=== PATIENT | male | born 1950 | race Caucasian/White ===

== ENCOUNTER → 2018-06-11 11:57 | Outpatient (CLI) | payer OTHER, MEDICARE, SELFPAY | PROVIDERS: PCP Physician Assistant Medical; Visit Provider Orthopaedic Surgery | DX: Z01.818 Encounter for other preprocedural examination (principal); Z01.812 Encounter for preprocedural laboratory examination; N39.0 Urinary tract infection, site not specified | CPT/HCPCS: 93005 ==

== ENCOUNTER 2018-07-03 08:22 | Inpatient (IN) | payer OTHER, MEDICARE, SELFPAY ==
[2018-06-20 09:23] VITALS: BMI 37.3
[2018-07-03] VITALS (15 sets, daily range): BP systolic 121–160; BP diastolic 55–92; PULSE 50–70; RESP 11–20; TEMP 32.2–36.4; O2SAT 91–97; BMI 37.3
--- NOTE | 2018-07-03 06:00 | DI.RAD.S_ITS ---
PROCEDURE: XR KNEE LT 1TO2V INDICATIONS: post operative total knee TECHNIQUE: 2 view(s) of the knee acquired. COMPARISON: [facility], , KNEE 1-2 VIEWS RIGHT, 11/21/2017, 13:08. FINDINGS: Bones: Patient is status post knee joint arthroplasty. Hardware components are in expected positions. Visualized bony structures are intact. Soft tissues: Overlying postoperative changes are noted. IMPRESSION: Postop changes from left total knee arthroplasty with anatomic left knee alignment. Dictated by: Aaron Solorio M.D. on 07/03/2018 at 14:13 Approved by: Aaron Solorio M.D. on 07/03/2018 at 14:14
[2018-07-03] MEDS: CELECOXIB 200 MG CAPSULE PO (09:01)
[2018-07-03] MEDS: ACETAMINOPHEN 325 MG TABLET 975 MG PO ×2 (09:01→20:38)
[2018-07-03] MEDS: PREGABALIN 75 MG CAPSULE PO (09:01)
[2018-07-03] MEDS: LACTATED RINGERS 1,000 ML 42 ML IV ×2 (09:03→12:12)
[2018-07-03] MEDS: VANCOMYCIN 1,000 MG/200 ML FROZ.PIGGY 200 MG IV (09:33)
--- NOTE | 2018-07-03 10:11 | PM.PREOP ---
Pre-operative Note Interval Note Pre-op Check: Yes History & Physical Reviewed by Physician and Yes Exam Performed Changes: No
--- NOTE | 2018-07-03 10:11 | PM.OP.1 ---
Operative Date/Time/Diagnoses Date of procedure: 07/03/18 Time of procedure: 11:12 Pre-op diagnosis: left knee OA Post-op diagnosis: same Procedure & Clinicians Procedure: left total knee arthroplasty Same procedure as scheduled: Yes Indications: The patient has had progressively worsening left knee pain with radiographic changes consistent with arthritis. Non-operative management has failed and the patient has requested total knee replacement. The risks, benefits and alternatives to surgery were discussed with the patient prior to proceeding. Risks discussed included, but were not limited to, failure to relieve pain, stiffness, infection, nerve damage, deep venous thrombosis, pulmonary embolism, stroke, coma, heart attack, permanent paralysis and , as well as the potential need for eventual revision of the prosthetic. Surgeon: Meenu Pat Senior Analysis Specialist: Sherron Patel Anesthesia Type: General and Spinal Operative Notes Findings: Severe left knee osteoarthritis, good stability Closure Type: primary Specimen(s): none sent Implants & Drains: [employer]hew Wallace BCS2 size 7 femur, size 7 tibia, +9 poly, size 38 patella Applied: drain(s) Estimated Blood Loss (mL): 300 Blood products transfused: none Tourniquet time (min): 89 Procedure in detail: The patient was seen in the pre-operative area, where the patient identified the right knee as the operative site and this was marked with my initials. The patient received pre-operative antibiotics, and was taken to the operating room and placed on the operative table in the supine position. After satisfactory anesthesia, a part time flexible clerk out was performed. The right leg was encircled with a tourniquet about the proximal thigh, and the leg was prepared from the toes to the tourniquet with ChloroPrep in the usual fashion and draped through sterile drapes. The leg was elevated and exsanguinated with Eschmark bandage and the tourniquet inflated to [250] mmHg pressure. The knee was approached through an approximately 18 cm incision centered over the patella and carried into the knee through a medial parapatellar arthrotomy. A portion of the medial and lateral meniscus was resected. Soft tissue was carefully mobilized around the patella the patella was measured with a caliper. Bone was resected from the patella and the patellar height was reconstituted with up an appropriate sized patellar component. A cover was then placed on the patella. A small amount of additional medial and lateral meniscus was resected. The visionare guide fit well to the distal femur. It looked like an appropriate distal femoral cut and the cut was made without difficulty. The rotation was assessed and the appropriate size femoral guide was placed on the distal femur and finishing cuts were made. There was no evidence of notching. The anterior, posterior and chamfer cuts were then made. The posterior osteophytes and soft tissues were then removed. The posterior capsule was injected with part of a mixture of 60 ml 0.25% Marcaine mixed with 20 ml Exparel for post operative pain control. The remainder of this mixture was injected into the capsule and subcutaneous tissues during cement curing. The tibia was prepared and the visionaire guide fit well to the distal tibia. The rotation was assessed. The patient was placed in extension residual medial and lateral meniscus as well as any residual bone was carefully resected. [No] additional tibia was resected. Hemostasis was achieved especially posteriorly. Additional local was injected into the posterior capsule. The extension gap was assessed and additional releases for gap balancing were performed as necessary. It was checked with the gap national sales executive. The femoral component was trial was placed and the notch was finished. Trial tibial and femoral components were then placed and the knee placed through a range of motion. Range of motion was [0-130], with good stability throughout the range. The trials were then removed, and the tibia was finished. The bone was prepared with pulsatile lavage, and dried with a sponge. Cement was applied and the final prosthetics placed. Excess cement was removed during and after cement curing. A brief Betadine soak was performed. After confirming there was no extruded cement posteriorly, the final tibial insert was placed. The knee was copiously irrigated and the tourniquet deflated. Hemostasis was obtained with the Bovie. A drain was placed and brought out superolaterally. The capsule was closed with interrupted nonabsorbable suture. The subcutaneous layer was closed with barbed sutures, and the skin with a running 3-0 V-Lock suture and Surgical glue. A small skin lesion from the bovie was excised with a 15 blade and steristripped. An Aquacel Ag dressing was applied and the patient was taken to recovery having tolerated the procedure well. Complications: none Condition: stable Disposition: Acute Care Plan for aftercare: The patient will be maintained on a standard total knee replacement protocol with weight bearing as tolerated. The patient will receive aspirin and sequential compression devices for DVT prophylaxis. The patient will be discharged home when safe for the home environment.
--- NOTE | 2018-07-03 10:17 | P.OP_ITS ---
Operative Date/Time/Diagnoses Date of procedure: 07/03/18 Time of procedure: 11:12 Pre-op diagnosis: left knee OA Post-op diagnosis: same Procedure & Clinicians Procedure: left total knee arthroplasty Same procedure as scheduled: Yes Indications: The patient has had progressively worsening left knee pain with radiographic changes consistent with arthritis. Non-operative management has failed and the patient has requested total knee replacement. The risks, benefits and alternatives to surgery were discussed with the patient prior to proceeding. Risks discussed included, but were not limited to, failure to relieve pain, stiffness, infection, nerve damage, deep venous thrombosis, pulmonary embolism, stroke, coma, heart attack, permanent paralysis and , as well as the potential need for eventual revision of the prosthetic. Surgeon: Meenu Pat Supervisor Phosphoric Acid: Sherron Patel Anesthesia Type: General and Spinal Operative Notes Findings: Severe left knee osteoarthritis, good stability Closure Type: primary Specimen(s): none sent Implants & Drains: Pat [employer]hew Wallace BCS2 size 7 femur, size 7 tibia, + 9 poly, size 38 patella Applied: drain(s) Estimated Blood Loss (mL): 300 Blood products transfused: none Tourniquet time (min): 89 Procedure in detail: The patient was seen in the pre-operative area, where the patient identified the right knee as the operative site and this was marked with my initials. The patient received pre-operative antibiotics, and was taken to the operating room and placed on the operative table in the supine position. After satisfactory anesthesia, a registered radiation therapist out was performed. The right leg was encircled with a tourniquet about the proximal thigh, and the leg was prepared from the toes to the tourniquet with ChloroPrep in the usual fashion and draped through sterile drapes. The leg was elevated and exsanguinated with Eschmark bandage and the tourniquet inflated to [250] mmHg pressure. The knee was approached through an approximately 18 cm incision centered over the patella and carried into the knee through a medial parapatellar arthrotomy. A portion of the medial and lateral meniscus was resected. Soft tissue was carefully mobilized around the patella the patella was measured with a caliper. Bone was resected from the patella and the patellar height was reconstituted with up an appropriate sized patellar component. A cover was then placed on the patella. A small amount of additional medial and lateral meniscus was resected. The visionare guide fit well to the distal femur. It looked like an appropriate distal femoral cut and the cut was made without difficulty. The rotation was assessed and the appropriate size femoral guide was placed on the distal femur and finishing cuts were made. There was no evidence of notching. The anterior, posterior and chamfer cuts were then made. The posterior osteophytes and soft tissues were then removed. The posterior capsule was injected with part of a mixture of 60 ml 0.25% Marcaine mixed with 20 ml Exparel for post operative pain control. The remainder of this mixture was injected into the capsule and subcutaneous tissues during cement curing. The tibia was prepared and the visionaire guide fit well to the distal tibia. The rotation was assessed. The patient was placed in extension residual medial and lateral meniscus as well as any residual bone was carefully resected. [No] additional tibia was resected. Hemostasis was achieved especially posteriorly. Additional local was injected into the posterior capsule. The extension gap was assessed and additional releases for gap balancing were performed as necessary. It was checked with the gap software quality assurance engineer. The femoral component was trial was placed and the notch was finished. Trial tibial and femoral components were then placed and the knee placed through a range of motion. Range of motion was [ 0-130], with good stability throughout the range. The trials were then removed, and the tibia was finished. The bone was prepared with pulsatile lavage, and dried with a sponge. Cement was applied and the final prosthetics placed. Excess cement was removed during and after cement curing. A brief Betadine soak was performed. After confirming there was no extruded cement posteriorly, the final tibial insert was placed. The knee was copiously irrigated and the tourniquet deflated. Hemostasis was obtained with the Bovie. A drain was placed and brought out superolaterally. The capsule was closed with interrupted nonabsorbable suture. The subcutaneous layer was closed with barbed sutures, and the skin with a running 3-0 V-Lock suture and Surgical glue. A small skin lesion from the bovie was excised with a 15 blade and steristripped. An Aquacel Ag dressing was applied and the patient was taken to recovery having tolerated the procedure well. Complications: none Condition: stable Disposition: Acute Care Plan for aftercare: The patient will be maintained on a standard total knee replacement protocol with weight bearing as tolerated. The patient will receive aspirin and sequential compression devices for DVT prophylaxis. The patient will be discharged home when safe for the home environment.
[2018-07-03] MEDS: CEFAZOLIN 2 GM/100 ML FROZ.PIGGY IV ×2 (10:31→20:37)
[2018-07-03] MEDS: TRANEXAMIC ACID 1,000 MG VIAL 1000 MG INJ ×2 (10:50→12:28)
--- NOTE | 2018-07-03 11:13 | SUR.OPER ---
Supine on padded OR bed. Pillow under head, arms secured on padded armboards <90 degree abduction. Safety belt across torso. Non-operative leg secured with tape over blanket over lower leg. Operative leg secured in DeMayo/Greg positioner. Foam padded brace at thigh of operative leg.
[2018-07-03] MEDS: BUPIVACAINE LIPOSOME 266 MG/20 ML VIAL INJ (11:24)
[2018-07-03] MEDS: BUPIVACAINE 0.25% W/ EPI VIAL 60 ML INJ (11:24)
[2018-07-03] MEDS: POVIDONE-IODINE 15 ML, SODIUM CHLORIDE 0.9% 250 ML TOP (11:25)
--- NOTE | 2018-07-03 11:50 | PC.NURSE ---
Day shift: Pt not on this AC unit at this time. 1151
--- NOTE | 2018-07-03 13:37 | SUR.PHASEI ---
face moist, pt c/o feeling hot, denied feeling lightheaded, nausea or pain. blankets removed for comfort.
--- NOTE | 2018-07-03 13:45 | SUR.PHASEI ---
Pt still diaphoretic, reports sweating easily at home, Dr. Velasquez notified, no new orders. VS stable. Reported feeling nauseated but denied nausea at this time.
--- NOTE | 2018-07-03 13:50 | SUR.PHASEI ---
Report called to Yara.
--- NOTE | 2018-07-03 14:06 | SUR.PHASEI ---
Pt transferred to the floor. Report to [facility]. VS stable. IV saline locked. Lt knee drsg cdi, HV clamped. Spinal level s4, able to wiggle toes slightly. Denied pain. Belongings bag with patient. Pt moderately diaphoretic, reported nausea while in transport but resolved.
--- NOTE | 2018-07-03 14:08 | PC.NURSE ---
Day shift: Pt arrived on unit at approx 1400 from PACU. A&Ox3. Oriented to room and call light. SCD's in place. Denies any pain. Family in room for support. Call light in reach. Pt c/o nausea. Will medicate w/ Zofran. Pt reported nausea after drinking water.
--- NOTE | 2018-07-03 14:37 | PT.IPTN ---
Current Diagnoses Unilateral primary osteoarthritis, left knee (07/03/18) Surgery Performed Operation Date: 07/03/18 10:45 Actual Procedures p Total Knee Arthroplasty(Left) - Meenu Pat MD Physical Therapy Treatment Note M3 PT-IP Subjective Start: 07/03/18 14:34 Freq: NEEDED Status: Active Protocol: Document 07/03/18 14:35 RS (Rec: 07/03/18 14:37 RS [id number]) Subjective Physical Therapy Visit Type Type Administrative Note Notes RN requests PT hold for now, pt diaphoretic with nausea and fever. This television script writer introduced the role and goals of acute PT. Pt reports he had his R knee replaced a few months ago , so he knows what to expect and is looking forward to getting up and moving once he' s medically ready.
[2018-07-03] MEDS: LACTATED RINGERS 1,000 ML 125 ML IV ×2 (14:46→23:00)
[2018-07-03] MEDS: ONDANSETRON 4 MG/2 ML INJ IV (14:47)
--- NOTE | 2018-07-03 16:44 | PT.IPTN ---
Current Diagnoses Unilateral primary osteoarthritis, left knee (07/03/18) Surgery Performed Operation Date: 07/03/18 10:45 Actual Procedures p Total Knee Arthroplasty(Left) - Meenu Pat MD Physical Therapy Treatment Note M3 PT-IP Subjective Start: 07/03/18 14:34 Freq: NEEDED Status: Active Protocol: Document 07/03/18 16:42 EA (Rec: 07/03/18 16:44 EA [id number]) Subjective Physical Therapy Visit Type Type Patient Refusal Notes Checked on nursing care at 1635 and reports patient vitals still unstable however pain is less. Patient was sleeping when checked.
[2018-07-03] MEDS: LORazepam 2 MG/ML SYRINGE 0.5 MG IV (17:19)
--- NOTE | 2018-07-03 17:51 | SUR.PHASEI ---
Addendum: light erythema and indentation to Rt index finger after o2 monitor probe was removed. Pt checked at this time and all symptoms were resolved, except for a pen point red spot on the medial side of the index finger.
[2018-07-03] MEDS: ASPIRIN EC 81 MG TABLET PO (20:37)
[2018-07-03] MEDS: DOCUSATE 100 MG CAPSULE PO (20:38)
[2018-07-04 00:29] VITALS: BP 146/67; PULSE 68; RESP 19; TEMP 36.8; O2SAT 97
[2018-07-04 03:11] VITALS: BP 131/63; PULSE 59; RESP 18; TEMP 36.5; O2SAT 96
[2018-07-04] MEDS: CEFAZOLIN 2 GM/100 ML FROZ.PIGGY IV (05:10)
--- NOTE | 2018-07-04 05:31 | PC.NURSE ---
Pt is AxOx3, reports no pain. Has feeling in b/l lower ext, no numbness or tingling. Hemovac put out 225mL this shift. IVF and ABX continued as ordered. Aqaucel is clean, dry, intact. No drainage noted. Black patent draining clear, yellow urine. Patient stated upon initial attempt of black insertion there was blood noted and the evening RN reported what looked like a clot at the end of the catheter and thought she might have broken up a clot that was initally preventing him from peeing. Coude 16Fr Black was reinserted and now with clear yellow urine. Bilateral SCDs on throughout night.
[2018-07-04 06:12] LABS: Hematocrit 40.5 % (41-53); Hemoglobin 13.6 g/dL (13.5-17.5)
[2018-07-04 07:40] VITALS: BP 144/73; PULSE 62; RESP 16; TEMP 36.7; O2SAT 100
[2018-07-04 08:30] VITALS: O2SAT 98
--- NOTE | 2018-07-04 09:40 | P.DS_ITS ---
History of Present Illness Date Patient Seen: 07/04/18 Time Patient Seen: 09:36 Chief complaint: left total knee arthroplasty left [id number] Narrative: The patient has had progressively worsening left knee pain with radiographic changes consistent with arthritis. Non-operative management has failed and the patient has requested total knee replacement. The risks, benefits and alternatives to surgery were discussed with the patient prior to proceeding. Risks discussed included, but were not limited to, failure to relieve pain, stiffness, infection, nerve damage, deep venous thrombosis, pulmonary embolism, stroke, coma, heart attack, permanent paralysis and , as well as the potential need for eventual revision of the prosthetic. Patient seen bedside. Discharge Providers Date of admission: 07/03/18 08:22 Primary care physician: Jacqueline David Consults: 06/20/18 11:21 Consult to Respiratory Therapy Evaluate & Treat Comment: Jolynn PARTIDA Physician Instructions: Evaluate and treat 07/03/18 06:00 Consult to Anesthesiology Routine Comment: Consulting Provider: Anesthesiologist Reason for consultation: Regional block for post operative pain control 07/03/18 14:07 Consult to Discharge Planning Routine Comment: Consult to Physical Therapy Evaluate & Treat Comment: Physician Instructions: postop TKA protocol Consult to Respiratory Therapy Evaluate & Treat Comment: Physician Instructions: Evaluate and treat Discharge provider: Andie Clayton PA-C Discharge Date: 07/04/18 Summary Discharge Diagnosis: left knee OA Hospital Course: Patient admitted to hospital on 07/03/18 for left total knee arthroplasty with Dr. Pat. Patient tolerated procedure well with no major complications. Patient transferred to floor. Patient has not seen PT yet. His pain was well controlled without any pain medications. Molina catheter inserted post op on 07/03 due to urinary retention. Molina removed on 07/04. Patient is stable and ready for discharge on 07/04 pending PT clearance and if patient is able to void. Patient reports his is home to assist him. Calfs are soft, non tender and compressible. Status at Discharge Functional status at discharge: uses cane/walker Overall status at discharge: patient is progressing back to baseline Time Spent with Patient Less than 30 minutes Exam Vital Signs (past 8 hours): - 07/04/18 03:11 07/04/18 07:40 07/04/18 08:30 Temperature 97.7 F 98.0 F Pulse Rate 59 L 62 Respiratory Rate 18 16 Blood Pressure 131/63 144/73 H Pulse Oximetry 96 100 98 Fraction of Inspired Oxygen 21 Oxygen Delivery Method Room Air Oxygen Flow Rate 0 Narrative Exam Narrative: Patient is AOx3. Patient is in no acute distress. Radial and dorsalis pedis pulses 2+ and symmetric. Sensation to light touch intact in LE bilaterally. Adequate muscle strength in dorsiflexin, plantarflexion and construction or leak gang laborer bilaterally. L knee dressing CDI. Hemovac drain intact on L LE with moderate output. DVT compression devices noted on LE bilaterally. Calfs are soft, compressible and non tender. Patient is laying in bed comfortably. He denies pain at this time. He has not taken any pain medications. He reports experiencing nausea yesterday and was unable to see PT. Nausea has resolved with 4mg of IV zofran. Patient reports that his is home to assist him. He denies any pain, chest pain, SOB, vomiting, fever or chills. Patient is [place] and has filled prescriptions at home. Objective Labs Result Diagrams: 07/04/18 05:49 Labs: Laboratory Results - last 24 hr 07/04/18 05:49 Hgb 13.6 Hct 40.5 L Discharge Plan Discharge Plan Patient Disposition: Home Discharge comment: continue Aspirin for DVT prophylaxis. Follow up with PCP regarding urinary retention. Discharge Med Rec/Prescriptions Prescriptions: New tamsulosin [Flomax] 0.4 mg Capsule 0.4 mg PO DAILY Qty: 30 RF: 0 Continue lisinopril 20 MG tablet 20 mg PO QDAY Qty: 0 RF: 0 acetaminophen [Tylenol Extra Strength] 500 mg Tablet 1,000 mg PO DAILY RF: 0 calcium citrate 250 mg calcium Tablet 1,000 mg PO DAILY RF: 0 Follow up/Referrals: Jacqueline David [Primary Care Provider] - (FOLLOW UP WITH YOUR PRIMARY CARE PROVIDER REGARDING URINARY RETENTION ) Meenu Pat MD [Physician] - (Follow up in one week at [facility] with Dr. Pat) Provider Discharge Instructions Diet: Diet as Tolerated Activity: Maintain on a standard total knee replacement protocol with weight bearing as tolerated. Use cane/walker until cleared by PT. Cold/Heat Therapy: Cold compress as needed. Skin/Wound/Dressing Care Report to your healthcare provider any signs of infection, such as:: chills, fever, night sweats, increased pain and unusual drainage Dressing: Keep clean and dry. Visit Report/Discharge Packet Instructions: DI for Knee Replacement Visit Report Forms: Stroke Signs & Symptoms Discharge Data Primary Care Provider: Jacqueline David Attending Provider: Meenu Pat Admit Date/Time: 07/03/18 08:22 Discharges patient from system. Discharge Date/Time: 07/04/18 14:50 Quality VTE Deep Vein Thrombosis/Pulmonary Embolism Present on Admission: No
--- NOTE | 2018-07-04 10:07 | PT.IIE ---
Addendum entered and electronically signed by Kathie Lux PT 07/04/18 15:23: This is to certify that I have reviewed this documentation and POC Original Note: Current Diagnoses Unilateral primary osteoarthritis, left knee (07/03/18) Surgery Performed Operation Date: 07/03/18 10:45 Actual Procedures p Total Knee Arthroplasty(Left) - Meenu Pat MD Surgical History (Last Updated 06/20/18 @ 09:31 by Maria C Foy, RN) History of Achilles tendon repair (Acute) History of tonsillectomy (Acute) History of total knee arthroplasty (Acute ~2018) Medical History (Last Updated 06/20/18 @ 11:17 by Maria C Foy, JESSE) Basal cell carcinoma (Acute) Bradycardia (Acute) Cataract (lens) fragments in eye following cataract surgery, bilateral (Acute) Enlarged prostate (Acute) History of kidney stones (Acute ~2018) Hypertension (Acute) Ocular migraine (Acute) Primary osteoarthritis of left knee (Acute) Physical Therapy Inpatient Evaluation/Re-Eval M1 PT/OT-IP Prior Functional Status Start: 07/03/18 14:34 Freq: NEEDED Status: Discharge Protocol: Document 07/04/18 10:07 (Rec: 07/04/18 11:38 [id number]) Medical Review Prior Functional Status Medical History Reviewed Yes Communication No deficits noted. Mobility and Gait Prior to admit pt states independent walking up to 1 hrs with no AD. He did report difficulty with stairs descending > ascending and would rely on rails for support. All other mobilities reported as independent. Social History Household Members spouse Living Arrangements House Number of Floors (Floors) Two Floors Number of Stairs To Enter/Railing? No steps to enter. ~12 steps B rails to 2nd floor but pt will live on main floor. 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 His is avaliable for 24/ 7 assist. 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 M2 PT-IP Current Condition Start: 07/03/18 14:34 Freq: NEEDED Status: Discharge Protocol: Document 07/04/18 10:07 (Rec: 07/04/18 11:38 [id number]) Physical Therapy Current Condition Current Condition Evaluation Date 07/04/18 Treatment Diagnosis L TKA; difficulty walking Onset Date 07/03/18 Weight Bearing Status Weight Bearing Status Weight Bear as Tolerated M3 PT-IP Subjective Start: 07/03/18 14:34 Freq: NEEDED Status: Discharge Protocol: Document 07/04/18 10:07 (Rec: 07/04/18 11:38 [id number]) Subjective Physical Therapy Visit Type Type Initial Evaluation Visit Start Time 10:07 Visit Stop Time 10:55 Total Visit Minutes 48 Number of ITINERANT TEACHER ASSISTANT Visits 0 Physical Therapy Visit Comments Patient Comments Pt agreeable to mobilize with PT. Patient Goals Planning to go home with . Therapy Pain Assessment Pain When Pain Assessed During Mobility Pain Present Pain Present Pain Reported Location Left Knee Intensity 5 Scale Used 0-1/10 at rest. 4-5/10 while walking. Pain Management Techniques Apply Cold Elevation Modification of Treatment Re-positioning Timing of Activity with Medications M4 PT-IP Mobility and Gait Start: 07/03/18 14:34 Freq: NEEDED Status: Discharge Protocol: Document 07/04/18 10:07 (Rec: 07/04/18 11:38 [id number]) PT-Bed Mobility Assessment Supine to Sit Supine to Sit Independent Sit to Supine Sit to Supine Independent Scooting Scooting to Edge of Bed Independent PT-Transfer Assessment Sit to and From Stand Sit to and from Stand Standby Assistance Equipment Transfer Assistive Device Gait Belt Front Wheeled Walker Orthotic/Prosthetic Devices or Brace: No Transfers Transfer Destination Bed Chair Transfer Ability Level of Assist Use of Upper Extremities Comments Mobility Comments He is able to go from supine to sitting at EOB independently and has strategy to use his RLE to assist post op leg (LLE) out of bed. He is encouraged to use LLE without assistance as much as possible to maintain/improve the strength. Sit > supine he is able to complete independently without assisting with LLE. Sit <> stands SBA with UE use require mod cuing to scoot to the edge and control descent. Gait Assessment Gait Gait Assistance Required: Standby Assistance Distance (Feet) 75 Able to Maintain Weight Bearing Status Yes During Gait Assistive Devices Assistive Device Gait Belt Front Wheeled Walker Orthotic/Prosthetic Devices or Brace: No Gait Deviations General Gait Pattern Antalgic Decreased Stride Length Flexed Trunk Factors Limiting Gait Function Factors Limiting Gait Function Decreased Activity Tolerance Decreased Strength Limited Range of Motion Pain Poor Balance Poor Safety Awareness Comments Gait Comments Pt ambulated 15 + 10 + 75 ft SBA with fww and required min cues to increase stride length . Despite multiple cues, he remained with a slightly flexed forward trunk during ambulation. PT-Balance Assessment Sitting Balance and Reactions Static Sitting Balance Ability Good Dynamic Sitting Balance Ability Good Standing Balance and Reactions Static Standing Balance Ability Good Dynamic Standing Balance Ability Fair Device Used fww M5 PT-IP Objective Assessments Start: 07/03/18 14:34 Freq: NEEDED Status: Discharge Protocol: Document 07/04/18 10:07 (Rec: 07/04/18 11:38 [id number]) Orientation Orientation/Cognition Level of Alertness Alert Orientation Name Birthday Place Situation Language Function Ability No Deficits Noted Safety Awareness Decreased Safety Awareness Comments Pt demonstrates impulsivity, requiring multiple requests to slow down, wait for PT to prep during session. Gross Range of Motion Lower Extremity ROM Assessment Left Impaired Impairments R knee flexion ~40 degrees Strength Lower Extremity Strength Assessment Left Impaired Hip 4 Knee 3+ Ankle 5 Comments Strength Comments R LE WNL Other Assessments Other Other Assessments VSS WNL supine EOB and after sit <> stand. M6 PT-IP Treatment Start: 07/03/18 14:34 Freq: NEEDED Status: Discharge Protocol: Document 07/04/18 10:07 (Rec: 07/04/18 11:38 [id number]) Physical Therapy Treatment Exercises Exercises Ankle Pumps Quad Sets Heel Slides Straight Leg Raises Short Arc Quads Passive Knee Extension Hang Seated Knee Flexion/Extension Education Education Provided Precautions Weight Bearing Status Post-Op Packet Safety M7 PT-IP Assessment and Plan Start: 07/03/18 14:34 Freq: NEEDED Status: Discharge Protocol: Document 07/04/18 10:07 (Rec: 07/04/18 11:38 [id number]) PT Summary Assessment and Plan Potential Rehabilitation Potential Good Status of Condition at Evaluation Stable Summary Impairments Pain ROM Strength Balance Bed Mobility Transfers Gait Activity Tolerance Progress Towards Goals Progressing Toward Goals Assessment Summary Pt s/p L TKA with difficulty walking. He was able to ambulate a total of 100 ft this session with SBA and fww. He demonstrates some impulsivity and it was emphasized this session that he needs to slow down and plan quality movements vs speed. Recommend d/c home with 24/7 assist and f/u OP PT for total knee rehab. Goals Bed Mobility Goal Independent Transfer Goal Independent Front Wheeled Walker Gait Goal Standby Assistance Front Wheel Walker Gait Distance 300 Days to Meet Goals 2 Frequency of Treatment Frequency Of Treatment Twice a Day Treatment Plan Physical Therapy Treatment Plan Bed Mobility Training Transfer Training Gait Training Therapeutic Exercise Balance Retraining Post Op Education Discharge Planning Hot or Cold Pack Neuromuscular Re-ed Coordination Retraining Other Recommendations and Next Treatment ambulation Focus Recommendations To Nursing Amount of Assist Needed 1 Person Assist Discharge Recommendations PT Discharge Recommendations Home with 24/7 Assist Outpatient PT
[2018-07-04] MEDS: ACETAMINOPHEN 325 MG TABLET 975 MG PO ×2 (11:05→14:15)
[2018-07-04] MEDS: ASPIRIN EC 81 MG TABLET PO (11:06)
[2018-07-04] MEDS: DOCUSATE 100 MG CAPSULE PO (11:07)
[2018-07-04] MEDS: IBUPROFEN 600 MG TABLET PO (11:07)
[2018-07-04 11:08] VITALS: BP 155/73; PULSE 112
[2018-07-04] MEDS: LISINOPRIL 20 MG TABLET PO (11:08)
[2018-07-04] MEDS: TAMSULOSIN 0.4 MG CAPSULE PO (11:09)
[2018-07-04 11:38] VITALS: BP 137/64; PULSE 61; RESP 13; TEMP 36.6; O2SAT 97
--- NOTE | 2018-07-04 13:48 | PC.NURSE ---
discharge pt states pain is controlled with scheduled tylenol and one ibuprofen that was given to pt after working with PT. denies nausea however does request zofran prior to d.c which was provided for pt. notified to f/u with PCP as well as Dr Pat. will contact MD with any questions or concerns. hemovac was putting out thick red blood, emptied around noon and it was 200 ml. Spoke with PA and she stated ok to pull HV out. When removed around 1400, drain was almost full again (around 200 ml). instructed pt to monitor and change dressing as needed. d/c instructions provided to pt. PIV removed prior to d/c. Dressing changed as well prior to d/c as it had drainage on upper aspect of dressing, ok to change per PA. pt left in w/c with escort to car.
[2018-07-04] MEDS: ONDANSETRON 4 MG ODT PO (14:15)
--- NOTE | 2018-07-04 14:44 | CM.DANOTE ---
DCP: assessment: case received today, EMR reviewed and discussed in Team Rounds. PT is a 68 year old male who admitted yesterday for a planned L TKA. Surgeon: Dr. Pat Payer: Enmanuel Marie and Medicare A. PT attempted to see pt yesterday but he was not yet medically stable for this. Ortho PA Andie did see pt this morning, noted that he had not yet been up with pt but said that if PT cleared him for d/c and if he was able to void when black was taken out (placed post surgery as was reportedly unable to void). Went to room now to meet with pt. No PT notes are yet in system. Ry Daley reports he did see PT and she had just gone over the d/c paperwork with pt and his . They were all going down the smith and to the car at this time. Was unable to see them before the d/c.
== END 2018-07-04 14:50 | disposition home or self-care (01) | DRG 470 ==
PROVIDERS: Admitting Provider Orthopaedic Surgery; PCP Physician Assistant Medical; Visit Provider Orthopaedic Surgery
PROC: 0SRD0JZ Replacement of Left Knee Joint with Synthetic Substitute, Open Approach (ICD-10-PCS; CPT 27447; principal; 2018-07-03 10:45)
DX: M17.12 Unilateral primary osteoarthritis, left knee (principal); I10 Essential (primary) hypertension; Z96.651 Presence of right artificial knee joint; R33.9 Retention of urine, unspecified
CPT/HCPCS: 36415; 73560; 85014; 85018; 94762; 97116; 97161; 97530; C1776; C9290; J0690; J1100; J2060; J2250; J2274; J2405; J3010; J3370

== ENCOUNTER → 2025-06-16 10:43 | Outpatient (CLI) | payer MEDICARE, OTHER, SELFPAY ==
[2018-07-03 14:34] VITALS: BMI 37.3
--- NOTE | 2025-06-16 | DI.RAD.S_ITS ---
PROCEDURE: FL JOINT INJECTION LARGE RT INDICATIONS: OSTEOARTHRITIS OF RT HIP COMPARISON: None. TECHNIQUE: The indications, alternatives, benefits, risks, and complications of the procedure were explained to the patient. Written informed consent was obtained and placed in the chart. The patient was placed in an appropriate position on the fluoroscopy table, and a site was chosen for percutaneous access under fluoroscopic guidance. The site was prepped and draped in a sterile fashion. Local anesthetic was administered using a 1% lidocaine solution. A hypodermic or spinal needle was then used to access the symptomatic joint. Intra-articular location of the needle tip was confirmed by injecting a small amount of contrast, followed by steroid administration. The needle was then withdrawn, and a bandage applied to the puncture site. FINDINGS: Joint injected: Right hip Medications injected: 4 mL of 40 mg/mL Kenalog and 0.5% Ropivacaine mixture. Complications: None. IMPRESSION: Successful fluoroscopically guided administration of steroid and anaesthetic solution into the right hip joint. Dictated by: Devon Mcelroy M.D. on 06/16/2025 at 15:53 Approved by: Devon Mcelroy M.D. on 06/16/2025 at 15:53
[2025-06-16] MEDS: TRIAMCINOLONE 40 MG/ML VIAL INTRA-ARTI (11:31)
[2025-06-16] MEDS: LIDOCAINE 1% 20 ML INJ (11:31)
== END ==
PROVIDERS: PCP Registered Nurse; Visit Provider Radiology Diagnostic Radiology
DX: M16.11 Unilateral primary osteoarthritis, right hip (principal)
CPT/HCPCS: 20610; 77002